=== PATIENT | female | born 1980 | race Caucasian/White ===

== ENCOUNTER 2017-01-19 14:04 | Emergency (ER) | payer MEDICARE | END 2017-01-19 15:04 | disposition home or self-care (01) | LOC: D.ER 14:04 | DX: L03.115 Cellulitis of right lower limb (principal); K21.9 Gastro-esophageal reflux disease without esophagitis; F17.200 Nicotine dependence, unspecified, uncomplicated ==

== ENCOUNTER 2017-09-27 20:32 | Emergency (ER) | payer MEDICARE | END 2017-09-27 21:45 | disposition home or self-care (01) | LOC: D.ER 20:32 | DX: T22.211A Burn of second degree of right forearm, initial encounter (principal); T31.0 Burns involving less than 10% of body surface; X19.XXXA Contact with other heat and hot substances, initial encounter; Y92.019 Unspecified place in single-family (private) house as the place of occurrence of the external cause; K21.9 Gastro-esophageal reflux disease without esophagitis; F17.200 Nicotine dependence, unspecified, uncomplicated ==

== ENCOUNTER 2017-11-20 20:40 | Emergency (ER) | payer OTHER ==
[2017-11-20 22:02] LABS: BASOPHILS 1.1 % (0-2); HEMATOCRIT 40.3 % (36.0-48.0); HEMOGLOBIN 14.5 g/dL (12-16); IMMATURE GRANULOCYTES 0.3 % (0-5); LYMPHOCYTES 37.5 % (15-50); MCH 32.4 pg (26.0-34.0); MEAN PLATELET VOLUME 10.5 fL (7.4-10.4); MONOCYTES 8.4 % (2-11); NEUTROPHILS 51.7 % (40-80); RBC 4.48 10x6/uL (4.00-5.40); RDW 12.3 % (11.5-14.5)
[2017-11-20 22:02] LABS: APPEARANCE CLEAR (CLEAR); BILIRUBIN NEGATIVE (NEGATIVE); COLOR STRAW (YELLOW); GLUCOSE NEGATIVE (NEGATIVE); KETONE NEGATIVE (NEGATIVE); NITRITE NEGATIVE (NEGATIVE); PROTEIN NEGATIVE (NEGATIVE); UROBILINOGEN NORMAL (NORMAL)
[2017-11-20 22:03] LABS: PLATELET COUNT 238 10x3/uL (130-400)
[2017-11-20 22:04] LABS: HCG URINE NEGATIVE (NEGATIVE)
[2017-11-20 22:10] LABS: UDS - AMPHET NEGATIVE QUAL (NEGATIVE); UDS - BARB NEGATIVE QUAL (NEGATIVE); UDS - BENZO NEGATIVE QUAL (NEGATIVE); UDS - COCAINE NEGATIVE QUAL (NEGATIVE); UDS - OPIATE NEGATIVE QUAL (NEGATIVE); UDS - PCP NEGATIVE QUAL (NEGATIVE); UDS - THC NEGATIVE QUAL (NEGATIVE)
[2017-11-20 22:11] LABS: ALBUMIN 4.3 g/dL (3.4-5.0); ALKALINE PHOSPHATASE 90 U/L (46-116); ALT (SGPT) 45 U/L (10-68); CALC OSMOLALITY 276 mosm/kg (275-300); CALCIUM 9.2 mg/dL (8.5-10.1); CARBON DIOXIDE 23.7 mmol/L (21.0-32.0); CHLORIDE - SERUM 103 mmol/L (98-107); CREATININE - SERUM 0.7 mg/dL (0.6-1.3); GLUCOSE 90 mg/dL (74-106); POTASSIUM - SERUM 3.7 mmol/L (3.5-5.1); PROTEIN - SERUM 7.6 g/dL (6.4-8.2); SODIUM 139 mmol/L (136-145); UREA NITROGEN 9 mg/dL (7-18); eGFR NON AFRICAN AMERICAN > 90 mL/min (90-120)
== END 2017-11-20 22:35 | disposition home or self-care (01) ==
LOC: D.ER 20:40
PROVIDERS: Family Medicine
DX: S16.1XXA Strain of muscle, fascia and tendon at neck level, initial encounter (principal); W06.XXXA Fall from bed, initial encounter; Y93.89 Activity, other specified; Y92.013 Bedroom of single-family (private) house as the place of occurrence of the external cause

== ENCOUNTER 2019-05-01 10:03 | Emergency (ER) | payer OTHER ==
[~2019-05-01] VITALS: Ht 165.1 cm; Wt 61.4 kg
[2019-05-01 10:37] VITALS: Ht 165.1 cm; Wt 61.4 kg
[2019-05-01] MEDS ORDERED: BUPRENORPHINE HC8 MG SL (10:39)
[2019-05-01 10:57] LABS: APPEARANCE HAZY (CLEAR); BACTERIA MANY /hpf (NEGATIVE); BILIRUBIN NEGATIVE (NEGATIVE); COLOR STRAW (YELLOW); EPITHELIAL CELLS 0-5 /hpf (0-5); GLUCOSE NEGATIVE (NEGATIVE); KETONE NEGATIVE (NEGATIVE); NITRITE NEGATIVE (NEGATIVE); PROTEIN NEGATIVE (NEGATIVE); RED CELLS - URINE 0-5 /hpf (0-5); SPECIFIC GRAVITY 1.005 (1.005-1.020); UROBILINOGEN NORMAL (NORMAL); WHITE CELLS - URINE 0-5 /hpf (NEGATIVE)
[2019-05-01 10:59] LABS: BASOPHILS 0.4 % (0-2); EOSINOPHILS 0.5 % (0-7); HEMATOCRIT 43.2 % (36.0-48.0); HEMOGLOBIN 15.3 g/dL (12-16); IMMATURE GRANULOCYTES 0.1 % (0-5); LYMPHOCYTES 23.7 % (15-50); MCH 31.2 pg (26.0-34.0); MCHC 35.4 g/dL (31.0-37.0); MEAN PLATELET VOLUME 9.8 fL (7.4-10.4); MONOCYTES 4.7 % (2-11); NEUTROPHILS 70.6 % (40-80); PLATELET COUNT 279 10x3/uL (130-400); RBC 4.91 10x6/uL (4.00-5.40); RDW 12.1 % (11.5-14.5)
[2019-05-01 11:14] LABS: ALBUMIN 4.1 g/dL (3.4-5.0); ALKALINE PHOSPHATASE 95 U/L (46-116); ALT (SGPT) 24 U/L (10-68); BILIRUBIN - TOTAL 0.39 mg/dL (0.2-1.3); CALC OSMOLALITY 282 mosm/kg (275-300); CALCIUM 9.8 mg/dL (8.5-10.1); CARBON DIOXIDE 25.4 mmol/L (21.0-32.0); CHLORIDE - SERUM 106 mmol/L (98-107); CREATININE - SERUM 0.6 mg/dL (0.6-1.3); GLUCOSE 110 mg/dL (74-106); POTASSIUM - SERUM 3.6 mmol/L (3.5-5.1); PROTEIN - SERUM 7.6 g/dL (6.4-8.2); SODIUM 142 mmol/L (136-145); UREA NITROGEN 10 mg/dL (7-18); eGFR NON AFRICAN AMERICAN > 90 mL/min (90-120)
[2019-05-01 11:17] LABS: AMYLASE - SERUM 57 U/L (25-115); LIPASE 142 U/L (73-393); TROPONIN-I < 0.017 ng/mL (0.000-0.060)
[2019-05-01] MEDS ORDERED: MACROBID100 MG PO (15:16)
[2019-05-01] MEDS ORDERED: KEFLEX500 MG PO (15:16)
[2019-05-01] MEDS ORDERED: IBUPROFEN800 MG PO (15:26)
[2019-05-01] MEDS ORDERED: CYCLOBENZAPRINE10 MG PO (15:26)
[2019-05-01] MEDS ORDERED: ACETAMINOPHEN500 M1 PO (15:26)
[2019-05-01 16:07] VITALS: BP 126/83
== END 2019-05-01 16:11 | disposition home or self-care (01) ==
LOC: D.ER 10:03
PROVIDERS: Family Medicine
DX: N39.0 Urinary tract infection, site not specified (principal); F17.210 Nicotine dependence, cigarettes, uncomplicated

== ENCOUNTER 2019-09-07 18:51 | Emergency (ER) | payer OTHER ==
[~2019-09-07] VITALS: Ht 165.1 cm; Wt 63.6 kg
[~2019-09-07 18:51] MED LIST: ACETAMINOPHEN500 M1 PO; BUPRENORPHINE HC8 MG SL; CYCLOBENZAPRINE10 MG PO; IBUPROFEN800 MG PO; KEFLEX500 MG PO; MACROBID100 MG PO
[2019-09-07 19:17] VITALS: Ht 165.1 cm; Wt 63.6 kg
[2019-09-07 19:35] LABS: BASOPHILS 0.2 % (0-2); EOSINOPHILS 1.3 % (0-7); HEMATOCRIT 44.2 % (36.0-48.0); HEMOGLOBIN 14.7 g/dL (12-16); IMMATURE GRANULOCYTES 0.2 % (0-5); LYMPHOCYTES 25.5 % (15-50); MCH 30.2 pg (26.0-34.0); MCHC 33.3 g/dL (31.0-37.0); MCV 90.8 fL (80.0-100.0); MEAN PLATELET VOLUME 9.9 fL (7.4-10.4); MONOCYTES 5.3 % (2-11); NEUTROPHILS 67.5 % (40-80); RBC 4.87 10x6/uL (4.00-5.40); RDW 12.7 % (11.5-14.5); WBC 8.7 10x3/uL (4.8-10.8)
[2019-09-07 19:36] LABS: PLATELET COUNT 213 10x3/uL (130-400)
[2019-09-07 19:44] LABS: CALC OSMOLALITY 280 mosm/kg (275-300); CALCIUM 8.6 mg/dL (8.5-10.1); CARBON DIOXIDE 28.6 mmol/L (21.0-32.0); CHLORIDE - SERUM 108 mmol/L (98-107); CREATININE - SERUM 0.7 mg/dL (0.6-1.3); POTASSIUM - SERUM 3.7 mmol/L (3.5-5.1); SODIUM 142 mmol/L (136-145); UREA NITROGEN 13 mg/dL (7-18); eGFR NON AFRICAN AMERICAN > 90 mL/min (90-120)
[2019-09-07 19:46] LABS: GLUCOSE 70 mg/dL (74-106)
[2019-09-07] MEDS ORDERED: KLONOPIN0.5 MG PO (19:51)
[2019-09-07 19:52] LABS: ALBUMIN 3.4 g/dL (3.4-5.0); ALKALINE PHOSPHATASE 97 U/L (30-120); ALT (SGPT) 18 U/L (10-68); BILIRUBIN - TOTAL 0.15 mg/dL (0.2-1.3); PROTEIN - SERUM 6.9 g/dL (6.4-8.2)
[2019-09-07 19:56] LABS: APPEARANCE CLEAR (CLEAR); BILIRUBIN NEGATIVE (NEGATIVE); COLOR YELLOW (YELLOW); GLUCOSE NEGATIVE (NEGATIVE); KETONE NEGATIVE (NEGATIVE); NITRITE NEGATIVE (NEGATIVE); PROTEIN NEGATIVE (NEGATIVE); UROBILINOGEN NORMAL (NORMAL)
[2019-09-07 19:56] LABS: HCG URINE NEGATIVE (NEGATIVE)
[2019-09-07 20:11] LABS: UDS - AMPHET POSITIVE QUAL (NEGATIVE); UDS - BARB NEGATIVE QUAL (NEGATIVE); UDS - BENZO NEGATIVE QUAL (NEGATIVE); UDS - COCAINE NEGATIVE QUAL (NEGATIVE); UDS - OPIATE NEGATIVE QUAL (NEGATIVE); UDS - PCP NEGATIVE QUAL (NEGATIVE); UDS - THC NEGATIVE QUAL (NEGATIVE)
[2019-09-07 20:15] LABS: MAGNESIUM - SERUM 1.7 mg/dL (1.8-2.4)
[2019-09-07] MEDS ORDERED: PROTONIX40 MG PO (21:29)
[2019-09-07] MEDS ORDERED: SMZ-TMP DS TABL1 TAB PO (21:29)
[2019-09-07 22:01] VITALS: BP 124/76
[2019-09-11 09:10] LABS: CHLAMYDIA TRACHOMATIS, NAA Negative (Negative)
== END 2019-09-07 22:03 | disposition home or self-care (01) ==
LOC: D.ER 18:51
PROVIDERS: Family Medicine
DX: K59.00 Constipation, unspecified (principal); L03.90 Cellulitis, unspecified; K29.70 Gastritis, unspecified, without bleeding

== ENCOUNTER 2020-02-22 00:55 | Emergency (ER) | payer OTHER ==
[~2020-02-22] VITALS: Ht 165.1 cm; Wt 68.2 kg
[~2020-02-22 00:55] MED LIST changes: +KLONOPIN0.5 MG PO; +PROTONIX40 MG PO; +SMZ-TMP DS TABL1 TAB PO
[2020-02-22 01:08] VITALS: Ht 165.1 cm; Wt 68.2 kg
[2020-02-22 01:41] LABS: BASOPHILS 0.5 % (0-2); EOSINOPHILS 0.3 % (0-7); HEMATOCRIT 43.1 % (36.0-48.0); IMMATURE GRANULOCYTES 0.3 % (0-5); LYMPHOCYTES 29.2 % (15-50); MCH 30.3 pg (26.0-34.0); MCHC 34.8 g/dL (31.0-37.0); MCV 87.1 fL (80.0-100.0); MEAN PLATELET VOLUME 10.3 fL (7.4-10.4); MONOCYTES 7.9 % (2-11); NEUTROPHILS 61.8 % (40-80); RBC 4.95 10x6/uL (4.00-5.40); RDW 12.4 % (11.5-14.5); WBC 7.5 10x3/uL (4.8-10.8)
[2020-02-22 01:50] LABS: PLATELET COUNT 266 10x3/uL (130-400)
[2020-02-22 01:54] LABS: CALC OSMOLALITY 276 mosm/kg (275-300); CALCIUM 9.3 mg/dL (8.5-10.1); CARBON DIOXIDE 24.9 mmol/L (21.0-32.0); CHLORIDE - SERUM 100 mmol/L (98-107); CREATININE - SERUM 0.9 mg/dL (0.6-1.3); GLUCOSE 95 mg/dL (74-106); POTASSIUM - SERUM 3.1 mmol/L (3.5-5.1); SODIUM 138 mmol/L (136-145); UREA NITROGEN 15 mg/dL (7-18); eGFR NON AFRICAN AMERICAN 73 mL/min (90-120)
--- NOTE | 2020-02-22 01:56 | NUR ---
DR. JUAREZ NOTIFIED AND SITTER ORDERED. SITTER AT BEDSIDE. NOTIFIED CHARGE NURSE AND ATTENDING IN REGARDS TO ASSESSMENT FINDINGS. RESOURCES GIVEN TO PT AND SAFETY PLAN INITIATED.
[2020-02-22 02:11] LABS: ALBUMIN 4.8 g/dL (3.4-5.0); ALKALINE PHOSPHATASE 100 U/L (30-120); ALT (SGPT) 21 U/L (10-68); BILIRUBIN - TOTAL 0.71 mg/dL (0.2-1.3); CKMB 1.9 U/L (0.0-3.6); CREATINE KINASE 228 UL (21-215); MAGNESIUM - SERUM 1.9 mg/dL (1.8-2.4); PROTEIN - SERUM 8.1 g/dL (6.4-8.2); TROPONIN-I < 0.017 ng/mL (0.000-0.060)
[2020-02-22 02:12] LABS: HCG SERUM NEGATIVE (NEGATIVE)
[2020-02-22 03:01] LABS: UDS - AMPHET POSITIVE QUAL (NEGATIVE); UDS - BARB NEGATIVE QUAL (NEGATIVE); UDS - BENZO NEGATIVE QUAL (NEGATIVE); UDS - COCAINE NEGATIVE QUAL (NEGATIVE); UDS - OPIATE NEGATIVE QUAL (NEGATIVE); UDS - PCP NEGATIVE QUAL (NEGATIVE); UDS - THC NEGATIVE QUAL (NEGATIVE)
[2020-02-22 03:06] LABS: BILIRUBIN NEGATIVE (NEGATIVE); GLUCOSE NEGATIVE (NEGATIVE); KETONE SMALL mg/dL (NEGATIVE); NITRITE NEGATIVE (NEGATIVE); UROBILINOGEN NORMAL (NORMAL)
[2020-02-22 03:07] LABS: BACTERIA FEW /hpf (NEGATIVE); EPITHELIAL CELLS 0-5 /hpf (0-5); RED CELLS - URINE 0-5 /hpf (0-5); WHITE CELLS - URINE 0-5 /hpf (NEGATIVE)
[2020-02-22 07:30] VITALS: BP 123/87
== END 2020-02-22 07:30 ==
LOC: D.ER 00:55
PROVIDERS: Family Medicine
DX: R45.851 Suicidal ideations (principal); E87.6 Hypokalemia; R41.0 Disorientation, unspecified; F19.10 Other psychoactive substance abuse, uncomplicated